=== PATIENT | female | born 1955 | race Caucasian/White ===

== ENCOUNTER 2016-07-29 05:48 | Day surgery (SDC) | payer BC ==
[2016-07-24 10:35] LABS: BASOPHILS 0.3 %; BASOPHILS ABSOLUTE 0.02 10/3/uL (0.0-0.16); EOSINOPHILS 1.2 %; EOSINOPHILS ABSOLUTE 0.08 10/3/uL (0.0-0.53); HEMATOCRIT 39.8 % (36.0-48.0); HEMOGLOBIN 13.6 g/dL (12.0-16.0); IMMATURE GRANULOCYTES 0.1 %; IMMATURE GRANULOCYTES ABSOLUTE 0.01 10/3/uL (0.0-0.11); LYMPHOCYTES 22.9 %; LYMPHOCYTES ABSOLUTE 1.58 10/3/uL (0.67-4.30); MEAN CORPUS HGB CONC 34.2 g/dL (32.0-36.0); MEAN CORPUSCULAR HEMOGLOB 34.1 pg (26.0-34.0); MEAN CORPUSCULAR VOLUME 99.7 fL (80-100); MEAN PLATELET VOLUME 10.7 fL (9.2-13.0); MONOCYTES 9.6 %; MONOCYTES ABSOLUTE 0.66 10/3/uL (0.21-1.20); NEUTROPHILS 65.9 %; NEUTROPHILS ABSOLUTE 4.54 10/3/uL (2.02-8.40); PLATELET COUNT 287 10/3/uL (150-400); RBC DISTRIBUTION WIDTH 12.6 % (12.0-16.0); RED CELL COUNT 3.99 10/6/uL (4.0-5.6); WHITE BLOOD CELLS 6.9 10/3/uL (4.5-10.5)
[2016-07-24 10:38] LABS: MANUAL DIFF NO %
[2016-07-24 10:47] LABS: BUN (BLOOD UREA NITROGEN) 15 MG/DL (6-23); CALCIUM, SERUM 9.6 MG/DL (8.5-10.4); CHLORIDE, SERUM 104 MMOL/L (96-112); CO2 (CARBON DIOXIDE) 30 MMOL/L (24-34); CREATININE 0.68 MG/DL (0.55-1.02); GFR AFRICAN AMERICAN 109 ML/MIN (>=60); GFR NON AFRICAN AMERICAN 94 ML/MIN (>=60); GLUCOSE, SERUM 74 MG/DL (60-99); POTASSIUM, SERUM 4.7 MMOL/L (3.5-5.3); SODIUM, SERUM 142 MMOL/L (135-148)
--- NOTE | ~2016-07-29 | OP ---
Record Of Operation [facility] [address] [place]. [address] NAME: AURORA WELCH : 53 STATUS : [place] 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 POSTOPERATIVE DIAGNOSIS: Complex endometrial hyperplasia with a focus of atypia. PROCEDURES: Laparoscopic hysterectomy with bilateral salpingo-oophorectomy via the da Bret laparoscopic robotic instrument, CPT code 89109. IN SCHOOL SUSPENSION AIDE: Armida. ESTIMATED BLOOD LOSS: 25 mL. FLUIDS IN: 1800 mL of crystalloid. ANESTHESIA: General endotracheal. COMPLICATIONS: None. FINDINGS AND INDICATIONS: This is a 60-year-old female who has had postmenopausal bleeding and has been treated with progesterone in the past. Despite her progesterone therapy, she continues to have postmenopausal bleeding. A biopsy performed on 05/2016 reveals complex endometrial hyperplasia with a focus of atypia. She has been brought to the operating room for laparoscopic hysterectomy with bilateral salpingo-oophorectomy, possible endometrial cancer staging. Intraoperatively, the uterus was removed intact. It was examined on the back table, and sent for frozen section. There appeared to be no gross evidence of invasive carcinoma, therefore a lymph node dissection was not performed. The patient was injected with indocyanine green for potential sentinel lymph node dissection, but again this was not performed. Postprocedure, a cystoscopy was performed with excellent bilateral ureteral jets. No evidence of bladder defect. Prior to the induction of anesthesia, the patient was treated with Lovenox for DVT prophylaxis. She was also given prophylactic antibiotics. PROCEDURE IN DETAIL: The patient was taken to the operating room, where she was placed in supine position for administration of general anesthesia. She was then placed in dorsal lithotomy position and prepped and draped in usual sterile fashion. The cervix was easily visualized and injected with approximately 4 mL of indocyanine green in anticipation of a potential sentinel lymph node dissection, again which was not performed. The uterine manipulator was placed through the uterine cervix and the DAT ring was sutured to the patient's cervix. Our attention was then turned towards the anterior abdominal wall, where an incision was made approximately 25 cm above the pubic symphysis and taken down to the underlying layer of fascia. The fascia was grasped with two sutures of 0 Vicryl, tented up, and entered sharply. The peritoneum was then tented up, entered sharply, and a laparoscopic trocar was placed under direct visualization. The abdominal cavity was insufflated with Record Of Operation [address] [place]. [address] NAME: AURORA WELCH : 53 STATUS : [place] [facility] [place] [id number] AGE: 60 ADM/REG DATE : 07/29/16 MR#: [id number] REPORT SERV DATE: 07/29/16 DICTATED BY: CHIP SMITH DATE: 07/29/16 REPORT STATUS : Draft TRANSCRIBED BY: TEJAS DATE: 07/29/16 CO2. Two additional 8 mm trocars were placed, one additional 12 mm trocar was placed. The patient was then docked to the laparoscopic robotic instrument and the remainder of the procedure was performed via the da Bret. The above findings noted. Pelvic washings were taken. The retroperitoneal spaces were opened via the round ligaments, which were grasped with bipolar cautery, cauterized, and transected bilaterally. The uterine arteries were identified at their origin. Hemoclips were placed to ensure long-term hemostasis. The gonadal vessels were isolated. Hemoclips were placed to ensure long-term hemostasis. They were then coagulated and transected bilaterally. Anteriorly, a bladder flap was created and taken down to a level well below the cervix. The uterine arteries were identified at the cervix, skeletonized, grasped with bipolar cautery, cauterized, and transected bilaterally. The uterosacral cardinal complex was then taken down with unipolar cautery and circumferential incision was made around the cervix and vagina, and the uterus, tubes, ovaries, and cervix were delivered through the vagina with the above findings noted. The vaginal cuff was then closed with a running stitch of #1 PDS V-Loc. The left the pelvis was irrigated with copious amounts of warm water. All pedicles were inspected and found to be hemostatic. The laparoscopic instruments were removed. The gas expelled from the abdomen. The initial incision was closed with 0 Vicryl at the fascia. The 12 mm port was also closed with 0 Vicryl at the fascia. The skin sites were closed with 4-0 Vicryl and Dermabond was placed. Postprocedure, a cystoscopy was performed with the above findings noted. At the completion of procedure, the anesthesia was reversed. The patient was extubated and brought to the recovery room in stable condition. PATRICE/TEJAS Chip Smith M.D. / [id number] CC: Bo Ortega M.D.
[~2016-07-29 05:48] MED LIST: ABILIFY5 PO; ASMANEX INH; BUSPAR15 M1 PO; CALTRA600D PO; CHROMIUM PO; DEPLIN7.5 MG OR; FISH OIL1200 MG PO; GLUCCHONDR PO; HORMONE PELLETS SQ; I-PRIN200 MG PO; LEXAPRO20 PO; MULTIPLE VIT PO; NAP500 PO; PROMETRIUM200 MG PO; RECLAST IV; SUPER B COMP PO; VITAMIN D31000 UNIT PO; WELLXL300 PO
== END 2016-07-29 17:03 | disposition home or self-care (01) ==
LOC: SDC 05:48
PROVIDERS: Obstetrics & Gynecology Gynecologic Oncology
PROC: 0UT24ZZ Resection of Bilateral Ovaries, Percutaneous Endoscopic Approach (ICD-10-PCS; 2016-07-29)
PROC: 0UT74ZZ Resection of Bilateral Fallopian Tubes, Percutaneous Endoscopic Approach (ICD-10-PCS; 2016-07-29)
PROC: 0UT94ZZ Resection of Uterus, Percutaneous Endoscopic Approach (ICD-10-PCS; principal; 2016-07-29 07:00)
PROC: 0UTC4ZZ Resection of Cervix, Percutaneous Endoscopic Approach (ICD-10-PCS; 2016-07-29 07:00)
DX: N85.01 Benign endometrial hyperplasia (principal); N83.8 Other noninflammatory disorders of ovary, fallopian tube and broad ligament; M85.80 Other specified disorders of bone density and structure, unspecified site; E78.00 Pure hypercholesterolemia, unspecified; F41.9 Anxiety disorder, unspecified; F32.9 Major depressive disorder, single episode, unspecified; D64.9 Anemia, unspecified; Z90.89 Acquired absence of other organs; Z88.1 Allergy status to other antibiotic agents; Z79.899 Other long term (current) drug therapy; Z87.891 Personal history of nicotine dependence; Z98.890 Other specified postprocedural states
CPT/HCPCS: 36415; 71020; 80048; 85025; 86850; 86900; 86901; 88112; 88305; 88309; 88331; 93005; A9270-GY; J0694; J1885; J2250; J2405; J2710; J2795; J3010